=== PATIENT | female | born 1995 | race Caucasian/White ===

== ENCOUNTER 2023-09-05 23:27 | Emergency (ER) | payer BC ==
[2023-09-06] MEDS ORDERED: predniSONE 10 MG Tab PO ONE (01:00)
[2023-09-06] MEDS ORDERED: Azithromycin 250 MG Tab PO ONE (01:00)
[2023-09-06] MEDS ORDERED: predniSONE 10 MG Tab ONE (01:07)
== END 2023-09-06 01:14 | disposition home or self-care (01) ==
LOC: MW.ED 23:27
DX: J06.9 Acute upper respiratory infection, unspecified (principal); J45.909 Unspecified asthma, uncomplicated; Z79.899 Other long term (current) drug therapy
CPT/HCPCS: 71046; 99283; A9270

== ENCOUNTER 2024-07-23 01:39 | Emergency (ER) | payer BC ==
[2024-07-23] MEDS: Tetracaine HCl/PF 0.5% 4 ML Bottle EYEBOTH ONE (01:56)
[2024-07-23] MEDS: Fluorescein 1 MG Ophth Strip EYERT ONE (01:57)
[2024-07-23] MEDS: Erythromycin Base 0.5% Ophth Oint 1 GM Tube EYERT ONE (02:42)
[2024-07-23] MEDS: Polymyxin B/Trimethoprim 10 ML Bottle EYERT ONE (07:14)
== END 2024-07-23 02:48 | disposition home or self-care (01) ==
LOC: MW.ED 01:39
DX: H10.021 Other mucopurulent conjunctivitis, right eye (principal); K21.9 Gastro-esophageal reflux disease without esophagitis; J45.909 Unspecified asthma, uncomplicated; Z79.899 Other long term (current) drug therapy; Z75.8 Other problems related to medical facilities and other health care
CPT/HCPCS: 99283; A9270; J3490